=== PATIENT | female | born 2005 | race Caucasian/White ===

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

== ENCOUNTER 2023-03-01 10:13 | Emergency (ER) | payer OTHER ==
[~2023-03-01] VITALS: Ht 172.7 cm; Wt 59.1 kg
[~2023-03-01 10:13] MED LIST: CEPHALEXIN500 M1 PO
[2023-03-01 11:44] LABS: BASOPHILS 0.3 % (0-2); EOSINOPHILS 0.5 % (0-6); HEMATOCRIT 32.2 % (35.0-50.0); HEMOGLOBIN 10.9 g/dL (12.0-18.0); LYMPHOCYTES 13.1 % (24-44); MCH 30.7 (27-36); MCHC 33.8 g/dl (30-36); MCV 90.9 fl (81-99); MONOCYTES 5.3 % (0-12); NEUTROPHILS 80.8 % (39-80); PLATELET COUNT 145 K/uL (140-440); RBC 3.54 M/ul (4.3-5.7); RDW 13.8 (10.5-15.0)
[2023-03-01 12:09] LABS: ABO A; RH NEGATIVE
[2023-03-01 12:23] LABS: ALBUMIN 2.9 g/dL (3.4-5.0); ALBUMIN/GLOBULIN RATIO 0.76 (1.1-2.4); BILIRUBIN, TOTAL 0.3 ng/dL (0.2-1.0); BUN/CREATININE RATIO 13.2 (6.0-28.6); CALCIUM 8.7 mg/dL (8.5-10.1); CREATININE, SERUM 0.53 mg/dL (0.55-1.02); PROTEIN, TOTAL 6.7 g/dL (6.4-8.2)
[2023-03-01 12:27] LABS: BILIRUBIN, URINE NEGATIVE (negative); BLOOD/HGB, URINE SMALL (Negative); KETONE, URINE NEGATIVE (Negative); LEUK ESTERASE, URINE MODERATE (negative); NITRITE, URINE NEGATIVE (negative)
[2023-03-01 12:34] LABS: BACTERIA, URINE RARE /hpf (negative)
[2023-03-01 12:35] LABS: CASTS, URINE NONE SEEN \\lpf; COLLECTION TYPE, URINE CLEAN CATCH; CRYSTALS, URINE NONE SEEN (0-1+); EPITHELIAL CELLS, URINE SQUAMOUS 2+ /lpf (0-1+); RED BLOOD CELLS, URINE 0-1 /hpf (0-5); REFLEX CULTURE, URINE No (No)
[2023-03-01 15:15] VITALS: BP 107/60
== END 2023-03-01 15:15 | disposition home or self-care (01) ==
LOC: ED 10:13
PROVIDERS: Emergency Medicine
DX: O46.92 Antepartum hemorrhage, unspecified, second trimester (principal); O26.892 Other specified pregnancy related conditions, second trimester; Z67.11 Type A blood, Rh negative; Z3A.21 21 weeks gestation of pregnancy
CPT/HCPCS: 36415; 76815; 80053; 81001; 84702; 84703; 85025; 86900; 86901; J2790

== ENCOUNTER 2023-05-15 09:36 | Inpatient (IN) | payer OTHER ==
[2023-05-15] MEDS ORDERED: CEFTRIAXONE/SODIUM CHLORIDE 1 GM/100 ML PIGGYBACK IV SCH (10:40)
[2023-05-15] MEDS ORDERED: ACETAMINOPHEN 500 MG TAB PO PRN (10:45)
[2023-05-15] MEDS ORDERED: ondansetron HCL 4 MG/2 ML VIAL IV PRN (10:45)
[2023-05-15] MEDS ORDERED: LACTATED RINGER'S 1,000 ML IV SCH (10:45)
[2023-05-15] MEDS ORDERED: MORPHINE SULFATE 4 MG/ML VIAL IV PRN (11:00)
[2023-05-15 11:19] LABS: BASOPHILS 0.2 % (0-2); EOSINOPHILS 0.4 % (0-6); HEMATOCRIT 35.3 % (35.0-50.0); HEMOGLOBIN 11.9 g/dL (12.0-18.0); LYMPHOCYTES 13.4 % (24-44); MCHC 33.8 g/dl (30-36); MCV 91.8 fl (81-99); MONOCYTES 5.5 % (0-12); NEUTROPHILS 80.5 % (39-80); PLATELET COUNT 128 K/uL (140-440); RBC 3.85 M/ul (4.3-5.7); RDW 13.6 (10.5-15.0)
[2023-05-15 12:17] LABS: ABO A; RH NEGATIVE
[2023-05-15 12:19] LABS: ANTIBODY SCREEN POSITVE
[2023-05-15 13:36] VITALS: BP 114/69
[2023-05-15 14:41] LABS: ANTIBODY IDENTIFICATION ANTI-D
--- NOTE | 2023-05-16 10:48 | PR ---
[facility] [address] [facility] [place], [place] [address] Signed AP Progress Notes Datetime Report Generated by VALERIA: 05/16/2023 10:48 Chief Complaint: Low back pain and cramping PHYSICAL EXAM: [id number] General: Normal HEENT: Normal Neurologic: Not Done Thyroid: Not Done Cardiovascular: Not Done Respiratory: Not Done Breast: Not Done Back: Abnormal Abdomen: Normal Genitourinary Exam: Not Done Extremities: Normal DTRs: Not Done Physical Exam Comments: S: 18 yo @ 31w6d with pyelonephritis. Doing well. She reports the pain has improved since admission and has only required two doses of narcotic pain medication yesterday and none since. Denies SRINIVASAN, CP, SOB, F/C, N/V, RUQ pain, changes in vision, vaginal bleeding or discharge, LOF. +FM O: AFVSS Abd: Gravid. Soft. Non-tender to palpation. Musc: CVA tenderness on left, no CVA tenderness on right. Moving all extremities. No C/C/E. Impression: Pyelonepritis. Improving. Plan: Continue antibiotics. Discontinue IV fluids. Likely discharge home tomorrow AM. VITAL SIGNS: [id number] Vital Signs: Reviewed; Within Normal Limits EXAM: [id number] MEMBRANES: [id number] Membranes: Intact FETUS A: [id number] FHR Baseline: 130 Variability: Moderate 6-25bpm Accelerations: 15X15 *Electronically Signed* 05/16/23 ABHAY SOSA MD PATIENT NAME: CARIDAD YAO PROGRESS NOTE DATE OF : 03 PHYSICIAN: ABHAY NORMAN MD RPT #: [id number] REPORT IS CONFIDENTIAL AND NOT TO BE RELEASED WITHOUT AUTHORIZATION [facility] [address] [place], [place] [address] Signed Deceleration: None FHR Comments: No signs of metabolic acidosis Gestation by US: 31.5 FETUS B: [id number] PROGRESS NOTES: [id number] Signing Physician: Abhay Norman MD Copies: ~ *Electronically Signed* 05/16/23 1048 ABHAY NORMAN MD PATIENT NAME: CARIDAD YAO PROGRESS NOTE DATE OF : 03 PHYSICIAN: ABHAY NORMAN MD RPT #: [id number] REPORT IS CONFIDENTIAL AND NOT TO BE RELEASED WITHOUT AUTHORIZATION
--- NOTE | 2023-05-17 08:51 | PR ---
[facility] [address] [facility] [place], [place] [address] Signed AP Progress Notes Datetime Report Generated by CPN: 05/17/2023 08:51 Chief Complaint: Back pain PHYSICAL EXAM: [id number] General: Normal HEENT: Normal Neurologic: Not Done Thyroid: Not Done Cardiovascular: Not Done Respiratory: Not Done Breast: Not Done Back: Normal Abdomen: Normal Genitourinary Exam: Not Done Extremities: Normal DTRs: Not Done Physical Exam Comments: S: 18 yo @ 32w0d with pyelonephritis. HD#3. Doing well. She reports improved low back pain and states she feels better this morning than she did yesterday. Denies SRINIVASAN, CP, SOB, F/C, N/V, RUQ pain, changes in vision, vaginal bleeding or discharge, LOF. +FM. Tolerating regular diet, ambulating, voiding on own, pain controlled. O: AFVSS Abdomen: Gravid. Soft, non-tender to palpation. Fundal height appropriate for gestational age. Musc: RIVERA. No C/C/E. Impression: 18 yo with pyelonephritis. Doing well. Significant improvement while on IV antibiotics. Plan: Will discharge home to finish out antibiotic course followed by prophylactic antibiotic course thereafter to 37 weeks. VITAL SIGNS: [id number] Vital Signs: Reviewed; Within Normal Limits EXAM: [id number] MEMBRANES: [id number] Membranes: Intact FETUS A: [id number] FHR Baseline: 130 *Electronically Signed* 05/17/23 0851 LUCITA NORMAN MD PATIENT NAME: CARIDAD YAO PROGRESS NOTE DATE OF : 03 PHYSICIAN: LUCITA NORMAN MD RPT #: [id number] REPORT IS CONFIDENTIAL AND NOT TO BE RELEASED WITHOUT AUTHORIZATION [facility] [address] [place] [address] Signed Variability: Moderate 6-25bpm Accelerations: 15X15 Deceleration: None FHR Comments: No signs of metabolic acidosis Gestation by US: 31.5 FETUS B: [id number] PROGRESS NOTES: [id number] Signing Physician: Lucita Norman MD Copies: ~ *Electronically Signed* 05/17/23 0851 LUCITA NORMAN MD PATIENT NAME: CARIDAD YAO PROGRESS NOTE DATE OF : 03 PHYSICIAN: LUCITA NORMAN MD RPT #: [id number] REPORT IS CONFIDENTIAL AND NOT TO BE RELEASED WITHOUT AUTHORIZATION
== END 2023-05-17 09:45 | disposition home or self-care (01) | DRG 833 ==
LOC: FBCO 09:36 → FBC 10:35
PROVIDERS: ADMIT Obstetrics & Gynecology; ATTEND Obstetrics & Gynecology
DX: O23.03 Infections of kidney in pregnancy, third trimester (principal); Z3A.31 31 weeks gestation of pregnancy; O99.283 Endocrine, nutritional and metabolic diseases complicating pregnancy, third trimester; E86.0 Dehydration
CPT/HCPCS: 36415; 59025; 85025; 86850; 86900; 86901; A9270; G0463; J0696; J2270; J7121

== ENCOUNTER 2023-07-05 03:35 | Inpatient (IN) | payer OTHER ==
[~2023-07-05] VITALS: Ht 172.7 cm; Wt 65.8 kg
[2023-07-05 04:14] LABS: HEMATOCRIT 36.7 % (35.0-50.0); HEMOGLOBIN 12.3 g/dL (12.0-18.0); MCH 30.1 (27-36); MCHC 33.5 g/dl (30-36); RBC 4.08 M/ul (4.3-5.7); RDW 13.5 (10.5-15.0)
[2023-07-05] MEDS ORDERED: OXYTOCIN/DEXTROSE 5% 20 UNITS/100 ML BAG IV SCH (04:15)
[2023-07-05] MEDS ORDERED: CALCIUM CARBONATE 500 MG CHEW PO PRN ×2 (04:15→04:45)
[2023-07-05] MEDS ORDERED: LACTATED RINGER'S 1,000 ML IV PRN (04:15)
[2023-07-05] MEDS ORDERED: LACTATED RINGER'S 1,000 ML IV SCH (04:15)
[2023-07-05] MEDS ORDERED: MAGNESIUM HYDROXIDE/AL HYDROX 30 ML CUP PO PRN ×2 (04:15→04:45)
[2023-07-05 04:45] VITALS: BP 126/79
[2023-07-05] MEDS ORDERED: HYDROCODONE/ACETA 5/325 TAB PO PRN (04:45)
[2023-07-05] MEDS ORDERED: ACETAMINOPHEN 325 MG TAB PO PRN (04:45)
[2023-07-05] MEDS ORDERED: OXYTOCIN/0.9 % SODIUM CHLORIDE 500 ML IV SCH (04:45)
[2023-07-05] MEDS ORDERED: LIDOCAINE 2% VISCOUS 6 ML SYR TOP ONE ×2 (04:45)
[2023-07-05] MEDS ORDERED: IBUPROFEN 600 MG TAB PO PRN (04:45)
[2023-07-05] MEDS ORDERED: MAGNESIUM HYDROXIDE 30 ML UDC PO PRN (04:45)
[2023-07-05] MEDS ORDERED: BENZOCAINE/LANOLIN/ALOE VERA 60 ML AEROSOL TOP PRN (04:45)
[2023-07-05] MEDS ORDERED: WITCH HAZEL/GLYCERIN 1 EA PAD TOP PRN (04:45)
[2023-07-05] MEDS ORDERED: HYDROCORTISONE ACETATE 25 MG SUPP PR PRN (04:45)
[2023-07-05 04:47] LABS: ABO A; RH NEGATIVE
[2023-07-05 04:48] LABS: ANTIBODY SCREEN NEGATIVE
[2023-07-05 07:07] LABS: AMPHETAMINES, URINE NEGATIVE (NEGATIVE); BARBITURATES, URINE NEGATIVE (NEGATIVE); BENZODIAZEPINE, URINE NEGATIVE (NEGATIVE); BUPRENORPHINE, URINE NEGATIVE (NEGATIVE); CANNABINOID, URINE POSITIVE (NEGATIVE); COCAINE, URINE NEGATIVE (NEGATIVE); ECSTASY, URINE NEGATIVE (NEGATIVE); FENTANYL, URINE NEGATIVE (NEGATIVE); METHADONE, URINE NEGATIVE (NEGATIVE); OPIATES, URINE NEGATIVE (NEGATIVE); OXYCODONE, URINE NEGATIVE (NEGATIVE); PHENCYCLIDINE, URINE NEGATIVE (NEGATIVE)
[2023-07-05] MEDS ORDERED: SENNOSIDES/DOCUSATE 1 EA TAB PO SCH (09:00)
[2023-07-06 05:35] LABS: HEMATOCRIT 29.6 % (35.0-50.0); HEMOGLOBIN 10.1 g/dL (12.0-18.0); MCH 30.5 (27-36); MCV 89.6 fl (81-99); RBC 3.3 M/ul (4.3-5.7); RDW 13.6 (10.5-15.0)
[2023-07-06 06:47] LABS: ABO A; RH NEGATIVE
[2023-07-06 06:48] LABS: ANTIBODY SCREEN POSITIVE; FETAL HEMOGLOBIN SCREEN NEGATIVE; RHIG DOSE 1; RHIG VIAL 1 RG22K01-I
[2023-07-06 06:49] LABS: RHIG STATUS CANDIDATE
--- NOTE | 2023-07-06 11:35 | PR ---
[facility] [address] [facility] [place] [address] Signed PP Progress Notes Datetime Report Generated by CPN: 07/06/2023 11:34 SUBJECTIVE: [id number] Pain: Within Normal Limits Vital Signs: [id number] Vital Signs: Reviewed; Within Normal Limits Cardiovascular: Not Done Respiratory: Not Done Abdomen/Uterus: Abnormal Lochia: Normal Vulva/Perineum: Not Done Breasts: Not Done CVA Tenderness: Not Done Extremities: Normal Incision: Not Applicable Progress: Normal Exam Comments: Fundus firm, NT @ U-2. IMPRESSION/PLAN/PROCEDURES: [id number] Impression: Normal Progression Plan: Discharge Procedures: Rhogam Progress Notes: Doing well. She desires D/C. Signing Physician: Iveth Tinoco MD Copies: ~ *Electronically Signed* 07/06/23 1134 IVETH TINOCO MD PATIENT NAME: CARIDAD YAO PROGRESS NOTE DATE OF : 03 PHYSICIAN: IVETH TINOCO MD RPT #: [id number] REPORT IS CONFIDENTIAL AND NOT TO BE RELEASED WITHOUT AUTHORIZATION
[2023-07-08 06:13] LABS: ANTIBODY IDENTIFICATION ANTI-D
== END 2023-07-06 11:35 | disposition home or self-care (01) | DRG 806 ==
LOC: FBCO 03:35 → FBC 03:51
PROVIDERS: ADMIT Obstetrics & Gynecology; ATTEND Obstetrics & Gynecology
PROC: 10E0XZZ Delivery of Products of Conception, External Approach (ICD-10-PCS; principal; 2023-07-05)
DX: O62.3 Precipitate labor (principal); O98.82 Other maternal infectious and parasitic diseases complicating childbirth; Z37.0 Single live birth; O99.324 Drug use complicating childbirth; Z3A.39 39 weeks gestation of pregnancy; O69.81X0 Labor and delivery complicated by cord around neck, without compression, not applicable or unspecified; O99.334 Smoking (tobacco) complicating childbirth; F17.210 Nicotine dependence, cigarettes, uncomplicated; F12.90 Cannabis use, unspecified, uncomplicated
CPT/HCPCS: 36415; 80307; 83030; 85027; 86850; 86870; 86900; 86901; J2790